=== PATIENT | male | born 1970 | race African-American/Black ===

== ENCOUNTER → 2024-05-28 | Outpatient (CLI) | payer OTHER ==
--- NOTE | 2024-05-28 15:20 | HMCIMG ---
MR SPINAL CANAL, CERV WO CON REASON: M54.12 Radiculopathy, cervical region COMPARISON: None TECHNIQUE: Routine cervical imaging protocol was performed. Exam was performed without IV contrast. FINDINGS: There is mild interspace narrowing at the C3 and C4. Remaining interspaces are preserved. There are some straightening of the normal cervical curvature. There is inhomogeneous appearance of the osseous marrow, this may reflect to red marrow conversion. There are no discrete focal osseous lesions. Axial images show widely patent C2-3 disc interspace. C3-4 shows annular bulging with some hypertrophic changes posteriorly. AP diameter in the midline is decreased to between 5 and 6 mm. There is some focal signal in the cord immediately below this level consistent with encephalomalacia or edema. There is moderate to marked bilateral foraminal narrowing as well. L4-5 interspace is widely patent. The right foramen is patent, the left is moderately narrowed. C5-6 is patent with normal appearing foramina. Remaining interspaces are preserved as well. Remaining portions of the cervical cord appear normal. IMPRESSION: 1. Degenerative changes with moderate to marked stenosis at the C3-4 level, AP diameter between 5 and 6 mm. 2. There is increased signal within the cord immediately below this level consistent with myelomalacia or edema. 3. Neural foraminal narrowing at multiple levels. 4. Diffuse decreased signal in the osseous marrow which may be a reflection of red marrow conversion.
--- NOTE | 2024-05-28 15:21 | HMCIMG ---
MR SPINAL CANAL, THORAC WO CON REASON: M54.14 Radiculopathy, thoracic region COMPARISON: None TECHNIQUE: Routine thoracic imaging protocol was performed. FINDINGS: There is decreased signal intensity in the osseous marrow which may be present marrow conversion. There are no focal osseous lesions. There is degenerative narrowing at multiple levels most pronounced at T6-7 and T8-9. Remaining interspaces are better preserved. There are no thoracic compression fractures. Axial images show widely patent spinal canal and thecal sac throughout. There is no evidence of focal spinal stenosis. Thoracic cord appears unremarkable. Stranding soft tissues appear unremarkable. IMPRESSION: 1. Decreased signal in the osseous marrow which may be red marrow conversion 2. Mild to moderate thoracic degenerative change. 2. No evidence of compression fracture, disc herniation or focal spinal stenosis.
== END | disposition home or self-care (01) ==
LOC: RAH 13:57
PROVIDERS: ATTEND Student in an Organized Health Care Education/Training Program
DX: M47.22 Other spondylosis with radiculopathy, cervical region (principal); M47.24 Other spondylosis with radiculopathy, thoracic region; M50.11 Cervical disc disorder with radiculopathy, high cervical region; M48.02 Spinal stenosis, cervical region
CPT/HCPCS: 72141; 72146

== ENCOUNTER → 2024-07-20 | Outpatient (CLI) | payer OTHER ==
--- NOTE | 2024-07-20 12:45 | HMCIMG ---
MR HIP LEFT WO HISTORY: Left hip pain COMPARISON: None TECHNIQUE: MRI of the left hip was performed utilizing multiple pulse sequences in axial, coronal and sagittal planes. Patient was not given contrast through intravenous route. FINDINGS: Paramagnetic susceptibility artifacts are noted of the left hip. This is limiting evaluation. The left acetabulum and left hip joint cannot be evaluated due to artifacts. Bladder is distended. IMPRESSION: 1. Limited study due to artifact caused by left hip prosthesis limiting evaluation.
--- NOTE | 2024-07-20 12:47 | HMCIMG ---
MR HIP RIGHT WO HISTORY: Pain COMPARISON: None TECHNIQUE: MRI of the right hip was performed utilizing multiple pulse sequences in axial, coronal and sagittal planes. Patient was not given contrast through intravenous route. FINDINGS: Extensive paramagnetic susceptibility artifacts are noted. The acetabulum and right proximal femur and right hip cannot be evaluated. There appears to be increased signal intensity involving the infra trochanteric region may be related to bone bruise (microtrabecular fracture) with stress fracture not excluded. IMPRESSION: 1. Findings as described above.
== END | disposition home or self-care (01) ==
LOC: RAH 10:12
PROVIDERS: ATTEND Student in an Organized Health Care Education/Training Program
DX: M25.552 Pain in left hip (principal); M25.551 Pain in right hip; N32.89 Other specified disorders of bladder; Z96.642 Presence of left artificial hip joint
CPT/HCPCS: 73721

== ENCOUNTER → 2024-11-05 | Outpatient (CLI) | payer OTHER ==
--- NOTE | 2024-11-06 21:27 | HMCIMG ---
EXAM: Three phase bone scan. INDICATION: Right hip pain REFERENCE EXAMINATION: None TECHNIQUE: 22.1 mCi of technetium 99m MDP intravenously. Immediately after tracer administration, blood flow and blood pool images of the area of interest were acquired. Delayed images were acquired at approximately 3 hours from tracer administration. FINDINGS: The radiopharmaceutical is seen in the expected bio distribution. A three-phase bone scan was performed with attention directed to the pelvis. Perfusion and blood pool images show no abnormal uptake to either hip joint. Physiological skeletal uptake noted in the delayed cortical phase. IMPRESSION: Normal Bone scan. /[place]
== END | disposition home or self-care (01) ==
LOC: RAH 10:11
PROVIDERS: ATTEND Student in an Organized Health Care Education/Training Program
DX: M25.551 Pain in right hip (principal)
CPT/HCPCS: 78315; A9503